=== PATIENT | male | born 1975 | race African-American/Black ===

== ENCOUNTER 2019-10-14 13:40 | Emergency (ER) | payer BC, OTHER ==
[~2019-10-14] VITALS: Ht 180.3 cm; Wt 109.2 kg
--- NOTE | 2019-10-14 15:24 | REP ---
REASON: Trauma. PRIORS: None. Vertebral body height and alignment is within normal limits. The disc spaces are symmetric and well maintained. The facet joints are well aligned bilaterally. There is no fracture. There is no abnormal paraspinal soft tissue swelling. IMPRESSION: The examination is within normal limits. Electronically Signed by Julito Cabrera DO 10/14/2019 03:52 P
--- NOTE | 2019-10-14 15:26 | REP ---
CT BRAIN WITHOUT CONTRAST: REASON: Trauma. TECHNIQUE: 4.5 mm contiguous transaxial sections were obtained from the skull base to the cerebral convexities with thin cuts through the posterior fossa without the administration of intravenous contrast. FINDINGS: The ventricles and sulci are consistent with the patient's age. There are no extra-axial fluid collections. There is no mass effect. The deep cerebral white matter is consistent with the patient's age. The orbital and petrous structures, cerebellopontine angles, and posterior fossa are unremarkable. The sella turcica, cavernous, and paracavernous structures are essentially unremarkable. The visualized portions of the paranasal sinuses and mastoid air cells are clear. Images of the skull base show no gross abnormality. IMPRESSION: Essentially unremarkable CT examination of the brain. Electronically Signed by Julito Cabrera DO 10/14/2019 03:52 P
[2019-10-14 15:34] VITALS: BP 125/86
== END 2019-10-14 15:37 | disposition home or self-care (01) ==
LOC: M ED 13:40
DX: S09.90XA Unspecified injury of head, initial encounter (principal); W22.8XXA Striking against or struck by other objects, initial encounter; Y92.89 Other specified places as the place of occurrence of the external cause; Y99.0 Civilian activity done for income or pay; R20.2 Paresthesia of skin; F17.210 Nicotine dependence, cigarettes, uncomplicated

== ENCOUNTER 2019-12-23 20:20 | Emergency (ER) | payer BC | END 2019-12-23 20:32 | disposition left against medical advice (07) | LOC: M ED 20:20 | DX: Z53.21 Procedure and treatment not carried out due to patient leaving prior to being seen by health care provider (principal) ==

== ENCOUNTER 2020-01-05 20:48 | Emergency (ER) | payer BC ==
[~2020-01-05] VITALS: Ht 180.3 cm; Wt 120.5 kg
[2020-01-05] MEDS ORDERED: ACETAMINOPHEN 500 MG TAB PO ONE (21:30)
[2020-01-05] MEDS ORDERED: IBUPROFEN 800 MG TAB PO ONE (21:30)
--- NOTE | 2020-01-05 22:17 | REP ---
Clinical: Pain. Trauma. Technique: AP, lateral, bilateral oblique views of the left ankle. Findings: Swelling appreciated. No acute fracture or dislocation. Joint spaces and ankle mortise are intact. Impression: Soft-tissue swelling. No acute fracture or dislocation. Electronically Signed by Semaj Kern MD 01/05/2020 10:09 P
[2020-01-05 22:34] VITALS: BP 122/74
== END 2020-01-05 22:35 | disposition home or self-care (01) ==
LOC: M ED 20:48
DX: S93.402A Sprain of unspecified ligament of left ankle, initial encounter (principal); X50.1XXA Overexertion from prolonged static or awkward postures, initial encounter; Y93.67 Activity, basketball; Y92.009 Unspecified place in unspecified non-institutional (private) residence as the place of occurrence of the external cause; Y99.9 Unspecified external cause status; F17.210 Nicotine dependence, cigarettes, uncomplicated; Z88.6 Allergy status to analgesic agent; Z91.013 Allergy to seafood